=== PATIENT | female | born 2005 | race African-American/Black ===

== ENCOUNTER 2023-03-07 08:45 | Outpatient (AMB) | payer OTHER, MEDICAID, SELFPAY ==
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
[2023-03-07 08:47] VITALS: BP 124/72; PULSE 87; O2SAT 98; BMI 19.9
== END 2023-03-07 09:45 | disposition home or self-care (01) ==
LOC: HO.HSMS 08:45
PROVIDERS: PCP Nurse Practitioner Family; Visit Provider Nurse Practitioner Family
DX: S06.0X0S Concussion without loss of consciousness, sequela (principal); G44.319 Acute post-traumatic headache, not intractable; Z33.1 Pregnant state, incidental; Z04.2 Encounter for examination and observation following work accident; R41.89 Other symptoms and signs involving cognitive functions and awareness
CPT/HCPCS: 99204

== ENCOUNTER → 2023-03-07 08:45 | Outpatient (BNVA) | payer OTHER, MEDICAID, SELFPAY | PROVIDERS: PCP Nurse Practitioner Family; Visit Provider Nurse Practitioner Family ==

== ENCOUNTER → 2023-04-19 07:36 | Outpatient (BNVA) | payer OTHER, MEDICAID, SELFPAY | PROVIDERS: PCP Nurse Practitioner Family; Visit Provider Nurse Practitioner Family ==

== ENCOUNTER 2024-04-30 10:36 | Outpatient (AMB) | payer OTHER, MEDICAID, SELFPAY ==
[2024-04-30 10:38] VITALS: BP 109/68; PULSE 65; O2SAT 97; BMI 21.0
--- NOTE | 2024-04-30 10:38 | A.OFFVIS_ITS ---
Vital Signs 04/30/24 10:38 Height 5 ft 8 in Weight 138 lb BMI 21.0 BP 109/68 Blood Pressure Location Rt brachial Position Sitting Pulse 65 Pulse Source Pulse Oximeter Pulse Oximetry (%) 97 Oxygen Delivery Method Room Air Intake Visit Reasons: Follow Up Intake Note: patient had baby in September. Patient stated she still getting migraines on her right side Allergies No Known Allergies Allergy (Verified 04/19/23 07:37) Medication List - Last Reconciled 04/30/24 by BEVERLY Flores cetirizine (All Day Allergy (cetirizine)) 10 mg PO DAILY PRN magnesium oxide 400 mg PO BEDTIME 30 days sumatriptan succinate 50 - 100 mg orally at onset of headache, may repeat in 2 hrs PRN; max 2 tabs per day or 4 tabs/week (may take with Tylenol) 30 days triamcinolone acetonide 0.025% 1 appl topical DAILY HPI Comments Details: 19-yr-old female presents for f/u postconcussive cognitive syndrome, migraine, cognitive difficulties. Patient reports she is 7 months . Pt reports she was induced at 38 weeks d/t small gestational size. Denies any complications. She is breast feeding- plans to continue for at least a few more months. Pt reports she having a daily to every other day headache. May wake up with a headache or develop a headache during the day when she is active- playing with the kids or cleaning. She notices photophobia when watching TV for too long or driving at night. Her reading glasses have blue light filters. She states Magnesium held helped her to not wake up with a headache. She did try Sumatriptan, which was helpful but needs to eat something with it.. She states she is having some cognitive issues- forgetfulness- needs to keep reminding herself. She is prone to zoning out x's 2-3 minutes if she is exposed to seeing flashing lights or over thinking. She notes while she was 5 months she had a syncopal episode while out shopping. She is prone to orthostatic lightheadedness and has had a few episodes of passing out. 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 She takes 80-100oz of water a day. Eats breakfast and dinner- usually skips lunch. She states she had cardiac work-up , including tilt table test, which was unremarkable. Baseline post-concussive headache characteristics: Moderate- Eye strain, eye pain, sharp pains in front or back of head. If worse, throbbing holocranial headache. A/w Photophobia, some phonophobia, dizziness, activity tolerance, tiredness, increased cognitive difficulties Triggers- overexerting herself, driving at night, watching TV for too long, using her phone for too long. If she stands up and bends over- she can get a headache and feel like she will pass out- this passes quickly if she sits down. [facility] Medical History (Updated 04/30/24 @ 11:09 by BEVERLY Flores) Family History Mother Breast cancer Hypertension Social History Household Members: Significant Other and Children Housing: House Alcohol intake: never Patient Tobacco Use Status: Never used Tobacco Physical Exam Vital Signs: Last Vital Signs Pulse 65 04/30/24 10:38 BP 109/68 04/30/24 10:38 Pulse Ox 97 04/30/24 10:38 Oxygen Delivery Method Room Air 04/30/24 10:38 BMI result Body Mass Index 21.0 Const General: cooperative and no acute distress Orientation/consciousness: patient oriented x3 Resp Effort & Inspection: normal respiratory effort and able to speak in complete sentences Neuro General: patient oriented x3 Cognition (Neuro): normal cognition Psych Appearance: grossly normal Mental Status: mental status grossly normal Speech and movement: Normal speech and movement present Affect: normal affect Attitude: cooperative Assessment & Plan Assessment & Plan (1) Postconcussive syndrome: Code(s): F07.81 - Postconcussional syndrome Category: Medical (2) Cognitive dysfunction: Code(s): F09 - Unspecified mental disorder due to known physiological condition Category: Medical (3) Migraine without aura: Comment: post-traumatic Code(s): G43.009 - Migraine without aura, not intractable, without status migrainosus Category: Medical (4) (): Code(s): Z78.9 - Other specified health status Category: Medical Plan For overall postconcussive management: Continue to optimize good self-care, including but not limited to maintaining a healthy diet, adequate fluid intake, adequate sleep, and engaging in regular physical activity. Track headaches. Reviewed strategies to minimize photophobia, such as migraine specific blue light blocking glasses as she can use when watching TV or while driving. 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 We will check EEG to assess for any indications of epileptic activity. For orthostatic lightheadedness in setting of history syncope C/W vasovagal and hypotensive episodes: Patient has had normal cardiology until table test. Patient advised to add 1-2 servings of electrolyte replacement drink, such as Gatorade or liquid IV to her daily fluid intake. Advised to avoid skipping meals. ? For acute headache treatment: Discussed importance of taking acute medications at the first sign of headache, however stressed importance of avoiding acute medication overuse (especially with combined headache medications). Resume Sumatriptan 100mg tab, 1/2 - 1 tab (50-100mg) at onset of headache, may repeat in 2 hours. Max of 2 tabs (200mg) per 24 hours. May adjunct with OTC Tyl enol 650mg q 4 hours. Previous acute migraine medication trials: Ibuprofen- some effect. Zofran- some effect Acute migraine medication contraindications: gepants d/t ? For headache prevention medication: Resume Magnesium 400mg qhs Previous migraine prevention medication trials: None Migraine prevention medication contraindications: Currently - would avoid TCAs, AEDs, CGRP MaBs, gepants. ?? ? Will follow-up upon review of above and patient to follow-up in clinic in 6 months or sooner prn. Orders: Orders EEG electroencephalogram Today F07.81 - Postconcussional syndrome, F09 - Unspecified mental disorder due to known physiological condition, G43.009 - Migraine without aura, not intractable, without status migrainosus Referrals Speech and Hearing Referral F07.81 - Postconcussional syndrome, F09 - Unsp ecified mental disorder due to known physiological condition Medications: Refilled magnesium oxide may hold for loose stools 400 mg PO BEDTIME 30 days 30 tabs 11RF sumatriptan succinate (0.5 - 1 x 100 mg) 50 - 100 mg orally at onset of headache, may repeat in 2 hrs PRN; max 2 tabs per day or 4 tabs/week (may take with Tylenol) 30 days 12 tabs 6RF migraine headache Coding Level of Care Code Est Pt Level 4 (41850) Diagnoses Postconcussive syndrome F07.81 Cognitive dysfunction F09 Migraine without aura G43.009 () Z78.9
== END 2024-04-30 11:18 | disposition home or self-care (01) ==
PROVIDERS: PCP Nurse Practitioner Family; Visit Provider Nurse Practitioner Family
DX: G44.309 Post-traumatic headache, unspecified, not intractable (principal); F07.81 Postconcussional syndrome; F09 Unspecified mental disorder due to known physiological condition; Z78.9 Other specified health status
CPT/HCPCS: 99214

== ENCOUNTER → 2024-04-30 10:36 | Outpatient (BNVA) | payer OTHER, MEDICAID, SELFPAY | PROVIDERS: PCP Nurse Practitioner Family; Visit Provider Nurse Practitioner Family ==

== ENCOUNTER 2024-06-04 08:28 | Outpatient (REF) | payer OTHER, MEDICAID, SELFPAY ==
--- NOTE | 2024-06-04 08:35 | EEG_ITS ---
This is a 16-channel EEG with an EKG lead. The patient is reported awake during the tracing. Background EEG rhythm is about 10 hertz 5 to 20 microvolt posteriorly and lower amplitude fast anteriorly. Photic stimulation does not produce any significant abnormality. Hyperventilation is unremarkable. Cardiac lead does not reveal any significant abnormality. No sharp wave spikes or paroxysmal tendency noted. IMPRESSION: Unremarkable EEG. MD ESTRADA Pringle/TAMMY / [id number]
--- OUTSIDE RECORDS SUMMARY | 2024-06-04 08:55 | XMS_ITS | Clinical Summary ---
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 Name Role Phone Haven Wagner DO Primary Care Provider [phone] Social History Tobacco Use Types Packs/Day Years Used Date Smoking Tobacco: Never Assessed Comments Unknown Sex and Gender Information Value Date Recorded Sex Assigned at Not on file Legal Sex Female 8:34 PM EST Gender Identity Not on file Sexual Orientation Not on file Plan of Treatment Upcoming Encounters Date Type Department Care Team (Late st Contact Info) Description 09/18/2024 3:30 PM EDT Office Visit Internal Medicine - [address] [phone] Haven Wagner DO [address] [place] [id number] Health Maintenance Due Date Last Done Comments Gonorrhea/Chlamydia Screening 2003 HPV Vaccines (1 - 3-dose series) 2018 Meningococcal B Vacine (1 of 2 - Standard) 2019 Annual Well Child Visit (3-2 1 years old) 03/10/2022 Depression Screening 03/10/2022 HIV Screening 03/10/2022 Hepatitis C Screening 03/10/2022 Social Influencers of Health Screening 03/10/2022 DTaP,Tdap,and Td Vaccines (1 - Tdap) 2022 Hepatitis B Vaccines (1 of 3 - 19+ 3-dose series) 2022 COVID-19 Vaccine (1 - 2023-2 5 season) 2023 Influenza Vaccine (#1) 2023 Cervical Cancer Screening: P ap Smear 2024 HIB Vaccines Aged Out No longer eligi ble based on patient's age to complete this topic Hepatitis A Vaccines Aged Out No long er eligible based on patient's age to complete this topic IPV Vaccines Aged Out No longer eligi ble based on patient's age to complete this topic MMR Vaccines Aged Out No longer eligi ble based on patient's age to complete this topic Meningococcal ACWY Vaccine Aged Out N o longer eligible based on patient's age to complete this topic Pneumococcal Vaccine: Pediat rics (0 to 5 Years) and At-Risk Patients (6 to 64 Years) Aged Out No longer eligible b ased on patient's age to complete this topic RSV Immunization Patients Un jailene 20 months Aged Out No longer eligible b ased on patient's age to complete this topic Varicella Vaccines Aged Out No longer eligible based on patient's age to complete this topic Insurance MEDICAID - [place] Care Teams Backhoe Operator Relationship Specialty Start Date End Date Haven Wagner DO [address] [place] [address] PCP - General Internal Medicine 04/28/24
== END 2024-06-04 08:29 | disposition home or self-care (01) ==
LOC: HO.NEURO 08:28
PROVIDERS: Visit Provider Nurse Practitioner Family
DX: F07.81 Postconcussional syndrome (principal); F09 Unspecified mental disorder due to known physiological condition; G43.009 Migraine without aura, not intractable, without status migrainosus
CPT/HCPCS: 95816

== ENCOUNTER 2024-08-19 10:46 | Outpatient (RCR) | payer OTHER, MEDICAID, SELFPAY ==
--- NOTE | 2024-08-20 17:12 | MHC.SP.ADU ---
Referring provider: BEVERLY Flores Reason for Referral: postconcussional syndrome Type of Treatment: 48992 Standardized Cognitive Performance Testing, per hour Date of Plan of Treatment: 08/19/24 Onset of Symptoms/Illness: 04/08/14 Date Treatment Started: 08/19/24 Medical Diagnosis: Postconcussional Syndrome Primary Speech Language Diagnosis: R41.841 Cognitive communication disorder History Magaly is a 18 year old female referred to [facility] for cognitive testing by Dr. Lilian Smart for memory concerns following third concussion. Magayl reports that memory issues began following her first concussion around 2014, however they notably worsened following her more recent concussion in ?2022 or 2023.? Magaly reports that she relies on writing down information or repeating information, otherwise she forgets within minutes. She reports difficulty holding a conversation, expressing that she ?talks in circles? and sometimes what she wants to say ?doesn?t come out.? Medical History: anxiety/depression, concussion Medication List: magnesium sumatriptan Respiratory Needs: Room Air Patient Orientation: Alert & Oriented x 4 Social History: Employment Status: Employed Highest level of education obtained: Completed High School/GED Assistive Devices in use: Glasses/Contacts Past Speech Language Therapy: None reported Other Therapies Seen in Current Calendar Year: None Swallowing History: Dysphagia Specific: Within Functional Limits Comments: No reported concerns for dysphagia Pre-eval Risk for Aspiration: None Reported Speech, Language, Cognition difficulties: Understanding Attention Reading Memory Cognition Speaking Problem Solving Writing Quality of Life: Cognitive challenges impact personal, social, and professional life. Assessment Tests of Cognition: RBANS Clinical Impression: Intact RESULTS: No standout concerns were noted during the patient interview, formal evaluation, and conversational speech samples during today's evaluation. Magaly answered questions appropriately without hesitation, she followed testing directions without any need for repetition, spoke with coherent speech and language, accurate morphosyntax, and had no observable difficulties with narratives or story telling. It is worth noting that Magaly did report that background noises and distractions make memory tasks more challenging. Today's evaluation was done in a controlled office environment, with outside distractions limited to conversations in bordering rooms and environmental sounds outside the window. RBANS: RBANS: Repeatable Battery for the Assessment of Neuropsychological Status The RBANS-Updated Form A assesses aspects of cognitive memory, language, and attention skills. The RBANS is considered a screening battery for cognitive function and is repeatable for the purpose of evaluating any changes in function. It is intended for use with adolescents and adults, ages 12 to 89 years. Composite domains assessed in this test are: Immediate Memory, Visuospatial/Constructional, Language, Attention, and Delayed Memory. Interpretation of test performance is based on normative data on individuals between ages 20-39. Deon performance is summarized below: IMMEDIATE MEMORY: This domain assesses the individual's ability to remember information immediately after it is presented. Magaly was read a list of 10 words and asked to repeat back as many words as she could. Upon the first reading of the wordlist, she recalled 5 words accurately. The following three times that she was read the list, she recalled 8-9 words. Magaly was then read aloud a story and asked to recall as many details as possible. Upon the first reading of the story she recalled 5 of 12 serrato details. Following the second reading she recalled 9 of 12 serrato details. Because Magaly was able to recall more information with additional repetitions, this could indicate that repetition of information could help to support her memory. List Learning Total Score: 31 Scaled Score: 9 Interpretation: Average Story Memory Total Score: 13 Scaled Score: 5 Interpretation: Borderline Immediate Memory Index Score: 83 Percentile: 13 Interpretation: Low Average VISUOSPATIAL/CONSTUCTIONAL: This domain assesses the individual's ability to perceive spatial relations and to construct a spatially accurate copy of a drawing. During the Figure Copy task, Magaly was given an example of a specific figure to copy onto a piece of paper. Individuals are scored on both the drawing accuracy and placement of 10 different target items. Kvngs drawing was largely identical to the example drawing; with minimal errors in placement and/or location of items. Magaly was then administered a Line Orientation task, in which an individual is asked to match two lines below to a series of angled numbered lines above. Magaly accurately identified both corresponding lines in 3 of 10 items, and 1 or 0 corresponding lines in the remaining 7 test 10 items; scoring 10 out of 20 in this subtest. It is notable that Magaly was not wearing her glasses during the testing. Figure Copy Total Score: 18 Scaled Score: 6 Interpretation: Low Average Line Orientation Total Score: 10 Percentile Group: =2 Interpretation: Extremely Low Visuospatial/Constructional Index Score: 72 Percentile: 3 Interpretation: Borderline LANGUAGE: This domain assesses the individual's ability to respond verbally to either naming or retrieving learned material. Magaly was first asked to name the word of various line drawings in a responsive naming task. She responded to all test items quickly and accurately. Magaly was then asked to name as many fruits and vegetables as she could in one minute in a Semantic Fluency task. She 7 items in the first 30 seconds and then a decreasing number of items each subsequent 15 second increment. Picture Naming Total Score: 10 Percentile Group: 51-75 Interpretation: Average Semantic Fluency Total Score: 19 Scaled Score: 7 Interpretation: Low Average Language Index Score: 92 Percentile: 30 Interpretation: Average ATTENTION: This domain assesses the individual's capacity to remember and manipulate both visually and orally presented information in short-term memory storage Magaly was read aloud strings of numbers of varying lengths then asked to recall the numbers. Magaly recalled strings of numbers up to 9 digits. In the coding subtest, Magaly was asked to write numbers to their matching symbols as quickly and efficiently as possible within 90 seconds. She worked both quickly and efficiently and produced no errors. Digit Span Total Score: 14 Scaled Score: 13 Interpretation: High Average Coding Total Score: 43 Scaled Score: 5 Interpretation: Borderline Attention Index Score: 94 Percentile: 34 Interpretation: Average DELAYED MEMORY: This domain assesses the individual's anterograde memory capacity. Low scores indicate difficulties with recognition and retrieval of information from long-term memory stores. Magaly recalled 8 words out of the 10 wordlist that was presented to him earlier in the testing. When given a recognition task (i.e. ?Was apple on the list??), Magaly answered yes/no questions accurately for all 20 test items. When asked to recall the story read to her earlier in testing, Magaly recalled 10 out of 12 serrato details. List Recall Total Score: 8 Percentile Group: 51-75 Interpretation: Average List Recognition Total Score: 20 Percentile Group: 51-75 Interpretation: Average Story Recall Total Score: 10 Scaled Score: 9 Interpretation: Average Figure Recall Total Score: 17 Scaled Score: 6 Interpretation: Low Average Delayed Memory Index Score: 99 Percentile: 47 Interpretation: Average Sum of Index Scores: 440 Total Scale Score: 83 Percentile: 13 Interpretation: Low Average Mehul Hussein (1998). Repeatable Battery for the Assessment of Neuropsychological Status [Manual]. SHAQ Rico: Nena. Impressions and Recommendations Summary: Based on standardized testing using the RBANS on this date, a cognitive-linguistic deficit was not identified. As compared to other individuals age 20-39, Magaly scored average overall. Magaly did score ?extremely low? during one visuospatial/constructional subtest, however it is worth noting that she was not wearing her glasses and this may have impacted her performance. Based on today?s testing, speech therapy is not warranted at this time. Should Magaly have concerns in the future, please re-refer. Recommendation for Speech Therapy: NA:Typical Evaluation Patient Education: Completed: Yes Patient/Caregiver Education: Described Results of Evaluation Patient expressed understanding of evaluation Comments/Barriers to Learning: Patient was informed that formal scoring of the assessment would need to be done prior to determining if speech therapy services would be warranted. Hris Manager Clinican/Clinical Fellow: No Supervisory Statement: N/A Speech Language Pathologist: Alisa Chapa M.A., CCC-ADMINISTRATIVE ASSISTANT RECEPTIONIST
== END 2024-08-24 10:01 | disposition home or self-care (01) ==
LOC: HO.SH 10:46
PROVIDERS: Visit Provider Nurse Practitioner Family
DX: R68.89 Other general symptoms and signs (principal); F07.81 Postconcussional syndrome; F09 Unspecified mental disorder due to known physiological condition
CPT/HCPCS: 96125

== ENCOUNTER 2024-10-29 11:05 | Outpatient (AMB) | payer OTHER, MEDICAID, SELFPAY ==
[2024-10-29 11:08] VITALS: BP 110/68; PULSE 76; O2SAT 98; BMI 19.2
--- NOTE | 2024-10-29 11:08 | HO.NEPHOV_ITS ---
Vital Signs 10/29/24 11:08 Height 5 ft 8 in Weight 126 lb BMI 19.2 BP 110/68 Blood Pressure Location Rt brachial Position Sitting Pulse 76 Pulse Source Pulse Oximeter Pulse Oximetry (%) 98 Oxygen Delivery Method Room Air Intake Visit Reasons: 6 mnts f/u Director Property Required: No Accompanied by: Child Allergies No Known Allergies Allergy (Verified 10/29/24 11:12) HPI Comments Details: 19-yr-old female presents for f/u postconcussive cognitive syndrome, migraine, cognitive difficulties. Patient is 13 months . She is still breast feeding some- nap time and bedtime. Pt reports she is doing overall better. 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 Has not played soccer since her last concussion and her . Pt reports she may wake up with a headache, but it fades as the day progresses. Not as frequent as before. She has noticed decreased photophobia when watching TV for too long or driving at night. Her reading glasses have blue light filters. She states Magnesium held helped her to not wake up with a headache. She did try Sumatriptan, which was helpful but needs to eat something with it.. Speech therapy evaluation, they did not feel that her results orange speech t herapy.? They did note some difficulty with visual-spatial perception, which they consider could be due to patient with glasses during the evaluation. She states she is having some cognitive issues- forgetfulness- needs to keep reminding herself. She is prone to zoning out x's 2-3 minutes if she is exposed to seeing flashing lights or over thinking. Trying now to take notes which helps. She is not having any orthostatic lightheadedness. 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 She is taking a bit less fluid. Doing better with eating something for breakfast, lunch, dinner. She previously had had cardiac work-up, including tilt table test, which was unremarkable. Baseline post-concussive headache characteristics: Moderate- Eye strain, eye pain, sharp pains in front or back of head. If worse, throbbing holocranial headache. A/w Photophobia, some phonophobia, dizziness, activity tolerance, tiredness, increased cognitive difficulties Triggers- overexerting herself, driving at night, watching TV for too long, using her phone for too long. If she stands up and bends over- she can get a headache and feel like she will pass out- this passes quickly if she sits down. [facility] Medical History (Updated 10/29/24 @ 11:54 by BEVERLY Flores) Family History Mother Breast cancer Hypertension Social History Household Members: Significant Other and Children Housing: House Alcohol intake: never Patient Tobacco Use Status: Never used Tobacco Physical Exam Vital Signs: Last Vital Signs Pulse 76 10/29/24 11:08 BP 110/68 10/29/24 11:08 Pulse Ox 98 10/29/24 11:08 Oxygen Delivery Method Room Air 10/29/24 11:08 BMI result Body Mass Index 19.2 Const General: cooperative and no acute distress Orientation/consciousness: patient oriented x3 Resp Effort & Inspection: normal respiratory effort and able to speak in complete sentences Neuro General: patient oriented x3 Cognition (Neuro): normal cognition Psych Appearance: grossly normal Mental Status: mental status grossly normal Speech and movement: Normal speech and movement present Affect: normal affect Attitude: cooperative Assessment & Plan Assessment & Plan (1) Postconcussive syndrome: Code(s): F07.81 - Postconcussional syndrome Category: Medical (2) Cognitive dysfunction: Code(s): F09 - Unspecified mental disorder due to known physiological condition Category: Medical (3) Migraine without aura: Comment: post-traumatic Code(s): G43.009 - Migraine without aura, not intractable, without status migrainosus Category: Medical Qualifiers: Status migrainosus presence: without status migrainosus Intractability: not intractable Qualified Code(s): G43.009 - Migraine without aura, not intractable, without status migrainosus (4) (infant): Code(s): Z78.9 - Other specified health status Category: Medical Plan For overall postconcussive management: Continue to optimize good self-care, including but not limited to maintaining a healthy diet, adequate fluid intake, adequate sleep, and engaging in regular physical activity. She may play soccer, however advised to avoid intentionally head in the soccer ball. Track headaches. Reviewed strategies to minimize photophobia, such as migraine specific blue light blocking glasses as she can use when watching TV or while driving. For postconcussive cognitive difficulties: [facility]CT [facility] PROFESSIONAL eval and treat completed. Reviewed EEG- normal. Futire considerations: college accommodations if needed For orthostatic lightheadedness in setting of history syncope C/W vasovagal and hypotensive episodes: Patient has had normal cardiology until table test. Continue to drink questionably 64 oz will refill day, including 1-2 servings of electrolyte replacement drink, such as Gatorade or liquid IV to her daily fluid intake. Advised to avoid skipping meals. ? For acute headache treatment: Discussed importance of taking acute medications at the first sign of headache, however stressed importance of avoiding acute medication overuse (especially with combined headache medications). Continue Sumatriptan 100mg tab, 1/2 - 1 tab (50-100mg) at onset of headache, may repeat in 2 hours. Max of 2 tabs (200mg) per 24 hours. May adjunct with OTC Tylenol 650mg q 4 hours. Previous acute migraine medication trials: Ibuprofen- some effect. Zofran- some effect Acute migraine medication contraindications: gepants d/t ? For headache prevention medication: Continue Magnesium 400mg qhs Previous migraine prevention medication trials: None Migraine prevention medication contraindications: Currently breast feeding- would avoid TCAs, AEDs, CGRP MaBs, gepants. ?? ? Will follow-up upon review of above and patient to follow-up in clinic in 6 months or sooner prn. Coding Level of Care Code Est Pt Level 4 (75306) Diagnoses Postconcussive syndrome F07.81 Cognitive dysfunction F09 Migraine without aura and without status migrainosus, not intractable G43.009 Status migrainosus presence: without status migrainosus Intractability: not intractable (infant) Z78.9
--- OUTSIDE RECORDS SUMMARY | 2024-10-29 11:58 | XMS_ITS | Clinical Summary ---
Author Organization [address] Building Address [address] [place] [phone] Phone Care Team Providers Care Miller Head Assistant Wet Process Name Role Phone Haven Wagner DO Primary Care Provider [phone] Allergies No known active allergies Medications SUMAtriptan (IMITREX) 100 mg tabletIndication s:migraine Take 1 tablet (100 mg total) by mouth 1 (one) time if needed for migraine. May repeat dose once in 2 hours if no relief. Do not exceed 2 doses in 24 hours. Active Active Problems Problem Noted Date Diagnosed Date Anxiety 09/18/2024 Headache Encounters Date Type Department Care Team Description 09/22/2024 Telephone Internal Medicine - [address] [phone] Paty Lobato [place] 09/18/2024 3:30 PM EDT Office Visit Internal Medicine - [address] [phone] Haven Wagner DO Adult general medical examination (Primary Dx); Antibody response exam; Screening for endocrine, metabolic and immunity disorder; Anxiety from Last 3 Months Medical History Medical History Date Comments Anxiety Headache Family History Medical History Relation Name Comments Asthma Brother 1 Rashad Asthma Brother 2 Gianni Depression Father Maximus Diabetes Maternal Grandfather Jef Heart disease Maternal Grandmother Yusuf Breast cancer Mother Windy Asthma Son Amir Relation Name Status Comments Brother 1 Rashad Brother 2 Gianni Father Maximus Maternal Grandfather Jef Maternal Grandmother Yusuf Mother Windy Son Amir Social History Tobacco Use Types Packs/Day Years Used Date Smoking Tobacco: Never Smokeless Tobacco: Never Alcohol Use Standard Drinks/Week Comments Never 0 (1 standard drink = 0.6 oz pur e alcohol) Housing Instability Answer Date Recorde d Are you worried that in the next 2 months you may not have stable housing? No 09/17/2024 Food Access & Nutrition Answer Date Rec orded Do you have access to a vari ety of food including fruits and vegetables? Yes 09/17/2024 Access to Healthcare Answer Date Record ed Within the last 3 months, ho w many times did you visit the emergency department for your medical care? 0 09/17/2024 Health Literacy Answer Date Recorded How often do you need to hav e someone help you when you read instructions, pamphlets, or other written material from your doctor or pharmacy? Never 09/17/2024 Caregiver: How often do you need to have someone help you when you read instructions, pamphlets, or other written material from your doctor or pharmacy? Not on file 09/17/2024 Financial Risk Answer Date Recorded How hard is it for you to pa y for the very basics like food, housing, medical care, and air conditioning / heating? Unable to respond 09/17/2024 Transportation Answer Date Recorded Has the lack of transportati on kept you from meetings, work, or from getting things needed for daily living? No Has the lack of transportati on kept you from medical appointments or from getting medications? No 09/17/2024 Social Isolation Answer Date Recorded How often do you feel lonely or isolated from th ose around you? Never 09/17/2024 Food Risk Answer Date Recorded Within the past 12 months we worried whether our food would run out before we got money to buy more. Never true 09/17/2024 Within the past 12 months th e food we bought just didn't last and we didn't have money to get more. Never true 09/17/2024 Dependent Care Answer Date Recorded Do you need help finding or paying for care for your loved ones. For example, child development director or elderly care for an older adult? No 09/17/2024 Education Answer Date Recorded Do you think completing more education or training, like finishing a GED, going to college, or learning a trade, would be helpful for you? Unable to respond 09/17/2024 Employment and Income Answer Date Recor ded During the last four weeks, have you been actively looking for work? No 09/17/2024 Living Situation Answer Date Recorded What is your living situation? 0 09/17/2024 Comments No Sex and Gender Information Value Date Recorded Sex Assigned at Not on file Legal Sex Female 8:34 PM EST Gender Identity Not on file Sexual Orientation Not on file Obstetrics History Last Filed Vital Signs Vital Sign Reading Time Taken Comments Blood Pressure 127/81 09/18/2024 3:29 PM EDT Pulse 53 09/18/2024 3:29 PM EDT Temperature - - Respiratory Rate - - Oxygen Saturation - - Inhaled Oxygen Concentration - - Weight 57.2 kg (126 lb) 09/18/2024 3:29 PM EDT Height 172.7 cm (5' 8 ) 09/18/2024 3:29 PM EDT Body Mass Index 19.16 09/18/2024 3:29 PM EDT Plan of Treatment Upcoming Encounters Date Type Department Care Team (Late st Contact Info) Description 09/23/2025 2:30 PM EDT Office Visit Internal Medicine - [facility] [address] [place] [phone] Haven Wagner, [address] [place] [address] Health Maintenance Due Date Last Done Comments Gonorrhea/Chlamydia Screening 2003 Meningococcal B Vaccine (1 of 2 - Standard) 2019 HIV Screening 03/10/2022 Hepatitis C Screening 03/10/2022 COVID-19 Vaccine ( season) 2023 08/04/2021, 07/14/2021 Cervical Cancer Screening: Pap Smear 2024 Influenza Vaccine (#1) 2024 , 02/06/2019, 05/09/2018, Additional history exists Social Influencers of Health Screening 09/17/2025 09/17/2024 Annual Well Child Visit (3-21 years old) 09/18/2025 09/18/2024 Cholesterol Screening (Lipid Panel) 10/21/2029 10/21/2024 DTaP,Tdap,and Td Vaccines (9 - Td or Tdap) 07/02/2033 07/03/2023, 05/21/2019, 01/24/2015, Additional history exists Pneumococcal Vaccine: Pediatrics (0 to 5 Years) and At-Risk Patients (6 to 49 Years) Completed 04/04/2004, 01/20/2004, 2003, Additional history exists HIB Vaccines Completed 07/04/2004, 10/06, 2003, Additional history exists IPV Vaccines Completed 05/23/2007, 11/07, 2003, Additional history exists MMR Vaccines Completed 05/23/2007, 07/04/2004 Hepatitis B Vaccines Completed 03/30/2008, 01/20/2004, 2003, Additional history exists Varicella Vaccines Completed 08/03/2009, 04/04/2004 HPV Vaccines Completed 01/27/2016, 01/06, 12/14/2013 Hepatitis A Vaccines Completed 05/31/2020, 04/06/20 19 Meningococcal ACWY Vaccine Completed 05/31/2020, Depression Screening Completed 09/17/2024 RSV Immunization Patients Under 20 months Aged Out No longer eligible based on patient's age to complete this topic Procedures Procedure Name Priority Date/Time Associated Diagnosis Comments LIPID PANEL WITH REFLEX TO DIRECT LDL Routine 10/21/2024 11:43 AM EDT Adult general medical examination BASIC METABOLIC PANEL Routine 10/21/2024 11:43 AM EDT Adult general medical examination THYROID STIMULATING HORMONE WITH REFLEX TO FREE T4 AND FREE T3 Routine 10/21/2024 11:43 AM EDT Adult general medical examination MUMPS ANTIBODY IGG Routine 10/21/2024 11 :43 AM EDT Antibody response exam Screening for endocrine, metabolic and immunity disorder RUBELLA ANTIBODY IGG Routine 10/21/2024 11:43 AM EDT Antibody response exam Screening for endocrine, metabolic and immunity disorder RUBEOLA ANTIBODY IGG Routine 10/21/2024 11:43 AM EDT Antibody response exam Screening for endocrine, metabolic and immunity disorder from Last 3 Months Results * Thyroid stimulating hormone with reflex to free t4 and free t3 (10/21/2024 11:43 AM EDT) Pathologist [facility] TSH 0.69 0.40 - 4.00 mcIU/mL LAB CHEMISTRY METHOD 10/21/2024 7:15 PM EDT [facility] Blood Venous blood specimen / Unknown Venipuncture / Unknown 10/21/2024 11:43 AM EDT 10/21/2024 11:43 AM EDT Haven Wagner DO LAB BLOOD ORDERABLES Final Res ult [facility] [address] [place] [address], [place] [phone] * Lipid panel with reflex to direct LDL (10/21/2024 11:43 AM EDT) Pathologist [facility] Cholesterol 132 0 - 200 mg/dL LAB CHEMISTRY METHOD 10/21/2024 5:23 PM EDT [facility] Triglycerides 43 0 - 150 mg/dL LAB CHEMISTRY METHOD 10/21/2024 5:23 PM T [facility] HDL 52 >=40 mg/dL LAB CHEMISTRY METHOD 10/21/2024 5:23 PM EDT [facility] LDL Calculated 71 0 - 100 mg/dL LAB CHEMISTRY METHOD 10/21/2024 5:23 PM EDT [facility] VLDL Cholesterol Antony 8.6 mg/dL LAB CHEMISTRY METHOD 10/21/2024 5:23 PM EDT [facility] Non HDL Chol. (LDL+VLDL) 80 <145 mg/dL LAB CHEMISTRY METHOD 10/21/2024 5:23 PM EDT [facility] Chol/HDL Ratio 2.5 0.0 - 4.4 LAB CHEMISTRY METHOD 10/21/2024 5:23 PM EDT [facility] Blood Venous blood specimen / Unknown Venipuncture / Unknown 10/21/2024 11:43 AM EDT 10/21/2024 11:43 AM EDT [facility] LAB BLOOD ORDERABLES Final Res ult Performing Organization Address City/[facility]/ZIP Co de Phone Number [facility] [address] [place] [address], [place] [phone] * Rubeola antibody IgG (10/21/2024 11:43 AM EDT) Rubeola IgG Positive Positive LAB CHEMISTRY METHOD 10/22/2024 9:32 AM EDT [facility] Rubeola IgG Antibody, measured 86.40 >=16.50 AU/mL LAB CHEMISTRY METHOD 10/22/2024 9:32 AM EDT [facility] Blood Venous blood specimen / Unknown Venipuncture / Unknown 10/21/2024 11:43 AM EDT 10/21/2024 11:43 AM EDT Narrative [facility] - 10/22/2024 9:32 AM EDT Interpretation >=16.5 AU/ml is considered to be consistent with Immunity [facility] LAB BLOOD ORDERABLES Final Res ult Performing Organization Address City/[facility]/ZIP Co de Phone Number [facility] [address] [place] [address], [place] [phone] * Rubella antibody IgG (10/21/2024 11:43 AM EDT) Rubella IgG Quant 23.2 >=10.0 I Unit/mL LAB CHEMISTRY METHOD 10/21/2024 6:08 PM EDT [facility] Rubella IgG Antibody Interp Positive Positive LAB CHEMISTRY METHOD 10/21/2024 6:08 PM EDT [facility] Blood Venous blood specimen / Unknown Venipuncture / Unknown 10/21/2024 11:43 AM EDT 10/21/2024 11:43 AM EDT [facility] LAB BLOOD ORDERABLES Final Res ult Performing Organization Address [facility] de Phone Number [facility] [address] [place] [address], [place] [phone] * Mumps antibody IgG (10/21/2024 11:43 AM EDT) Mumps IgG Positive Positive LAB CHEMISTRY METHOD 10/22/2024 9:32 AM EDT [facility] Mumps IgG Antibody, measured 125.0 >=11.0 AU/mL LAB CHEMISTRY METHOD 10/22/2024 9:32 AM EDT [facility] Blood Venous blood specimen / Unknown Venipuncture / Unknown 10/21/2024 11:43 AM EDT 10/21/2024 11:43 AM EDT Narrative [facility] - 10/22/2024 9:32 AM EDT >=11 AU/mL is considered to be consistent with Immunity. [facility] LAB BLOOD ORDERABLES Final Res ult Performing Organization Address [facility] de Phone Number [facility] [address] [place] [address], [place] [phone] * (ABNORMAL) Basic metabolic panel (10/21/2024 11:43 AM EDT) Sodium 140 133 - 145 mmol/L LAB CHEMISTRY METHOD 10/21/2024 5:20 PM EDT [facility] Potassium 3.8 3.5 - 5.5 mmol/L LAB CHEMISTRY METHOD 10/21/2024 5:20 PM EDT [facility] Chloride 108 96 - 110 mmol/L LAB CHEMISTRY METHOD 10/21/2024 5:20 PM EDT [facility] CO2 27 21 - 32 mmol/L LAB CHEMISTRY METHOD 10/21/2024 5:20 PM [facility] Anion Gap 5 3 - 11 LAB CHEMISTRY METHOD 10/21/2024 5:20 PM [facility] Glucose 79 70 - 100 mg/dL LAB CHEMISTRY METHOD 10/21/2024 5:20 PM [facility] BUN 9 5 - 25 mg/dL LAB CHEMISTRY METHOD 10/21/2024 5:20 PM [facility] Creatinine 0.57 0.50 - 1.10 mg/dL LAB CHEMISTRY METHOD 10/21/2024 5:20 PM [facility] eGFR 133 >=60 mL/min/1. 73m2 LAB CHEMISTRY METHOD 10/21/2024 5:20 PM T [facility] Comment:Calculation based on the Chronic Kidney Disease Epidemiology Collaboration (CKD-EPI) equation refit without adjustment for race. BUN/Creatinine Ratio 15.8 LAB CHEMISTRY METHOD 10/21/2024 5:20 PM [facility] Calcium 8.3(L) 8.5 - 10.5 mg/dL LAB CHEMISTRY METHOD 10/21/2024 5:20 PM [facility] Blood Venous blood specimen / Unknown Venipuncture / Unknown 10/21/2024 11:43 AM EDT 10/21/2024 11:43 AM EDT us Haven Wagner DO LAB BLOOD ORDERABLES Final Res ult [facility] [address] [place] [address], from Last 3 Months Insurance MEDICAID - [place] [facility] Care Teams Miller Head Assistant Wet Process Relationship Specialty Start Date End Date Haven Wagner DO [address] [place] [id number] PCP - General Internal Medicine 04/28/24
== END 2024-10-29 12:06 | disposition home or self-care (01) ==
LOC: HO.HSMS 11:06
PROVIDERS: PCP Nurse Practitioner Family; Visit Provider Nurse Practitioner Family
DX: G43.009 Migraine without aura, not intractable, without status migrainosus (principal); F07.81 Postconcussional syndrome; F09 Unspecified mental disorder due to known physiological condition; Z78.9 Other specified health status
CPT/HCPCS: 99214